=== PATIENT | female | born 1980 | race Two or more races ===

== ENCOUNTER 2024-02-11 20:42 | Inpatient (IN) | payer OTHER ==
[2024-02-11 21:19] VITALS: BMI 21.2
[2024-02-11] MEDS ORDERED: IBUPROFEN 400 MG TABLET (FP) PO PRN (21:57)
[2024-02-11] MEDS ORDERED: P-EPHED 60MG/TRIPROLIDI 2.5MG TABLET PO PRN (21:57)
[2024-02-11] MEDS ORDERED: DICYCLOMINE HCL 10 MG CAPSULE PO PRN (21:57)
[2024-02-11] MEDS ORDERED: NALOXONE HCL 0.4 MG/ML VIAL IM PRN (21:57)
[2024-02-11] MEDS ORDERED: LOPERAMIDE HCL 2 MG CAPSULE PO PRN (21:57)
[2024-02-11] MEDS ORDERED: NICOTINE POLACRILEX 2 MG LOZENGE BC PRN (21:57)
[2024-02-11] MEDS ORDERED: NALOXONE (NARCAN) HCL 4 MG/0.1 ML SPRAY NS PRN (21:57)
[2024-02-11] MEDS ORDERED: BENZONATATE 200 MG CAPSULE PO PRN (21:57)
[2024-02-11] MEDS ORDERED: ONDANSETRON *ODT* 4 MG TABLET SL PRN (21:57)
[2024-02-11] MEDS ORDERED: IBUPROFEN 600 MG TABLET (FP) PO PRN (21:57)
[2024-02-11] MEDS ORDERED: ACETAMINOPHEN 325 MG TABLET (FP) PO PRN (21:57)
[2024-02-11] MEDS ORDERED: BENZOCAINE/MENTHOL (CHLORASEPTIC ) LOZENGE MM PRN (21:57)
[2024-02-11] MEDS ORDERED: MAGNESIUM HYDROX 2400MG/30ML ORAL SUSPENSION 30 ML CUP PO PRN (21:57)
[2024-02-11] MEDS ORDERED: guaiFENesin 600 MG TABLET.ER (FP) PO PRN (21:57)
[2024-02-11] MEDS ORDERED: BISMUTH SUBSALICYLATE 524 MG/30 ML PO PRN (21:57)
[2024-02-11] MEDS ORDERED: POLYETHYLENE GLYCOL (HEALTHYLAX) 3350 17 GM PACKET PO PRN (21:57)
[2024-02-12] MEDS: THIAMINE 100 MG TABLET PO SCH (00:29)
[2024-02-12] MEDS: MELATONIN 5 MG TABLETS PO SCH (00:29)
[2024-02-12] MEDS: MAG HYDROX/AL HYDROX/SIMETH 30 ML UNIT-DOSE CUP PO PRN (05:58)
[2024-02-12] MEDS: cloNIDine HCL 0.1 MG TABLET PO ONE (06:38)
[2024-02-12] MEDS: PRENATAL VITAMINS W/ FOLIC ACID TABLET (FP) PO SCH (10:09)
[2024-02-12] MEDS: methaDONE HCL 10 MG TABLET (FOR DETOX USE ONLY) PO ONE (10:23)
[2024-02-12 12:06] LABS: HEMOGLOBIN 11.5 GM/dL (10.7-15.3); MCH 29.5 pg (25.7-33.7); MCHC 32.7 g/dl (32.0-36.0); MEAN CELL VOLUME 90.3 fl (80-96); MEAN PLT VOLUME 8.1 fl (7.5-11.1); PLATELET COUNT 378 10^3/uL (134-434); RBC 3.88 M/mm3 (3.60-5.2); RDW 14.6 % (11.6-15.6); WHITE BLOOD COUNT 7.3 K/mm3 (4.0-10.0)
[2024-02-12 12:22] LABS: CALCIUM 8.3 mg/dL (8.5-10.1)
[2024-02-12 12:23] LABS: ALBUMIN 2.7 g/dl (3.4-5.0)
[2024-02-12 12:26] LABS: CREATININE 0.9 mg/dL (0.55-1.3)
[2024-02-12 12:28] LABS: BILIRUBIN,TOTAL 0.2 mg/dL (0.2-1); TOT PROT 5.9 g/dl (6.4-8.2)
[2024-02-12 12:50] LABS: HIV INTERPRETATION NEGATIVE (NEGATIVE)
[2024-02-12] MEDS: cloNIDine HCL 0.1 MG TABLET PO PRN (22:12)
[2024-02-12] MEDS: METHOCARBAMOL 500 MG TABLET PO PRN (22:12)
[2024-02-13] MEDS: hydrOXYzine PAMOATE 25 MG CAPSULE (FP) PO PRN (22:10)
[2024-02-14] MEDS: methaDONE HCL 10 MG TABLET (FOR DETOX USE ONLY) PO ONE (10:03)
[2024-02-14] MEDS: NICOTINE POLACRILEX 2 MG GUM BUC PRN (16:41)
[2024-02-15] MEDS: methaDONE HCL 10 MG TABLET PO SCH (06:04)
[2024-02-15 13:41] VITALS: TEMP 98.2
[2024-02-15 17:02] VITALS: BP 108/68; PULSE 79; RESP 18
[2024-02-16] MEDS ORDERED: methaDONE HCL 10 MG TABLET (FOR DETOX USE ONLY) PO ONE (10:00)
== END 2024-02-15 18:20 | disposition other institution (70) | DRG 773 ==
LOC: YASAS 20:42 → Y3N 23:06
PROVIDERS: ADMIT Allergy & Immunology; ATTEND Surgery
PROC: HZ2ZZZZ Detoxification Services for Substance Abuse Treatment (ICD-10-PCS; principal; 2024-02-11)
DX: F11.23 Opioid dependence with withdrawal (principal); F14.20 Cocaine dependence, uncomplicated; F12.20 Cannabis dependence, uncomplicated; F17.210 Nicotine dependence, cigarettes, uncomplicated; F10.10 Alcohol abuse, uncomplicated
CPT/HCPCS: 36415; 80053; 80305; 80307; 81025; 85027; 86780; 86803; 87389; 87811; 93005; 93010

== ENCOUNTER 2024-02-15 18:16 | Inpatient (IN) | payer OTHER ==
[2024-02-15] MEDS ORDERED: ACETAMINOPHEN 325 MG TABLET (FP) PO PRN (18:35)
[2024-02-15] MEDS ORDERED: POLYETHYLENE GLYCOL (HEALTHYLAX) 3350 17 GM PACKET PO PRN (18:35)
[2024-02-15] MEDS ORDERED: LOPERAMIDE HCL 2 MG CAPSULE PO PRN (18:35)
[2024-02-15] MEDS ORDERED: BENZOCAINE/MENTHOL (CHLORASEPTIC ) LOZENGE MM PRN (18:35)
[2024-02-15] MEDS ORDERED: MAG HYDROX/AL HYDROX/SIMETH 30 ML UNIT-DOSE CUP PO PRN (18:35)
[2024-02-15] MEDS ORDERED: MAGNESIUM HYDROX 2400MG/30ML ORAL SUSPENSION 30 ML CUP PO PRN (18:35)
[2024-02-15] MEDS ORDERED: NICOTINE POLACRILEX 2 MG LOZENGE BC PRN (18:35)
[2024-02-15] MEDS ORDERED: BENZONATATE 200 MG CAPSULE PO PRN (18:35)
[2024-02-15] MEDS ORDERED: guaiFENesin 600 MG TABLET.ER (FP) PO PRN (18:35)
[2024-02-15] MEDS: THIAMINE 100 MG TABLET PO SCH (21:27)
[2024-02-15] MEDS: MELATONIN 5 MG TABLETS PO SCH (21:27)
[2024-02-16] MEDS: hydrOXYzine PAMOATE 25 MG CAPSULE (FP) PO PRN (05:40)
[2024-02-16] MEDS: METHOCARBAMOL 500 MG TABLET PO PRN (05:40)
[2024-02-16] MEDS: methaDONE HCL 10 MG TABLET PO SCH (08:12)
[2024-02-16] MEDS: PRENATAL VITAMINS W/ FOLIC ACID TABLET (FP) PO SCH (10:14)
[2024-02-17] MEDS: NICOTINE POLACRILEX 2 MG GUM BUC PRN (08:59)
[2024-02-19] MEDS: methaDONE HCL 10 MG TABLET PO SCH (10:02)
[2024-02-21] MEDS ORDERED: BENZOCAINE 20 % GEL TUBE MM PRN (10:18)
[2024-02-27] MEDS: OMEGA-3 ACID ETHYL ESTERS (FATTY-ACIDS) 1 GM CAPSULE (FP) PO SCH (10:23)
[2024-02-28] MEDS: IBUPROFEN 600 MG TABLET (FP) PO PRN (07:04)
[2024-03-03] MEDS: methaDONE HCL 10 MG TABLET PO SCH (10:30)
[2024-03-04] MEDS: methaDONE HCL 10 MG TABLET PO ONE (10:27)
[2024-03-05] MEDS: methaDONE HCL 10 MG TABLET PO SCH (10:00)
[2024-03-09] MEDS: IBUPROFEN 400 MG TABLET (FP) PO PRN (15:23)
[2024-03-11 07:11] VITALS: RESP 18
[2024-03-12 07:10] VITALS: TEMP 97.4
[2024-03-12 09:33] VITALS: BP 111/79; PULSE 94
== END 2024-03-12 09:00 | disposition home or self-care (01) | DRG 772 ==
LOC: YASAS 18:16 → Y5N 18:18
PROVIDERS: ADMIT Allergy & Immunology; ATTEND Psychiatry & Neurology Pain Medicine
PROC: HZ42ZZZ Group Counseling for Substance Abuse Treatment, Cognitive-Behavioral (ICD-10-PCS; principal; 2024-02-15)
DX: F11.20 Opioid dependence, uncomplicated (principal); F14.20 Cocaine dependence, uncomplicated; F17.210 Nicotine dependence, cigarettes, uncomplicated